=== PATIENT | female | born 1960 | race Caucasian/White ===

== ENCOUNTER 2024-07-29 23:34 | Emergency (ER) | payer SELFPAY ==
[~2024-07-29] VITALS: Ht 154.9 cm; Wt 58.5 kg
[2024-07-29 23:37] VITALS: PULSE 78; RESP 16; TEMP 97.8
[2024-07-30] MEDS ORDERED: BACITRACIN ZINC 15 GM OINT TOP STA (00:18)
[2024-07-30] MEDS: TETANUS/DIPHTHERIA TOX ADULT 0.5 ML SYR IM ONE (00:20)
[2024-07-30] MEDS ORDERED: BACTRIM DS TAB1 EACH PO (00:21)
[2024-07-30] MEDS: BACITRACIN ZINC 0.9GM TP ONE (00:39)
[2024-07-30 00:40] VITALS: BP 197/79; PULSE 78; RESP 17; TEMP 97.8; O2SAT 99
== END 2024-07-30 00:43 | disposition home or self-care (01) ==
LOC: FSED 23:38
DX: S61.012A Laceration without foreign body of left thumb without damage to nail, initial encounter (principal); W26.8XXA Contact with other sharp object(s), not elsewhere classified, initial encounter; Y92.89 Other specified places as the place of occurrence of the external cause; I10 Essential (primary) hypertension; E11.9 Type 2 diabetes mellitus without complications; E78.5 Hyperlipidemia, unspecified
CPT/HCPCS: 90714; 96372; 99284